=== PATIENT | male | born 1960 | race Two or more races ===

== ENCOUNTER 2025-01-20 06:31 | Emergency (ER) | payer OTHER ==
[~2025-01-20] VITALS: Ht 170.2 cm; Wt 62.6 kg
[2025-01-20] MEDS ORDERED: LIDOCAINE 2% JEL UROJET 10 ML MM ONE (06:43)
[2025-01-20 07:08] LABS: PLATELET COUNT (AUTO) 224 K/uL (150-450); RED BLOOD CELL COUNT(AUTO) 5.19 MIL/uL (4.5-6.0); RED CELL DISTRIBUTION WIDTH 15.8 % (11.5-15.0); WHITE BLOOD COUNT (AUTO) 5.2 K/uL (4.3-11.0)
[2025-01-20 07:09] LABS: APPEARANCE,URINE CLEAR (CLEAR); BLOOD, URINE 2+ Ery/uL (NEGATIVE); LEUKOCYTE ESTERASE ,URINE NEGATIVE (NEGATIVE); NITRITE, URINE NEGATIVE (NEGATIVE); UGLUCOSE NEGATIVE (NEGATIVE)
[2025-01-20 07:15] LABS: CALCIUM, SERUM 8.8 mg/dL (8.5-10.1); CREATININE 1.4 mg/dL (0.6-1.3); SODIUM SERUM 135.0 mmol/L (136-145); UREA NITROGEN, BLOOD 23.0 mg/dL (7-18)
[2025-01-20] MEDS ORDERED: TAMS-12 PO (07:18)
[2025-01-20 07:54] LABS: ADD URINE CULTURE YES; SQUAMOUS EPITHELIAL CELL,UR Few /HPF (None Seen)
[2025-01-20] MEDS: IV NS 0.9% 1,000 ML BAG IV ONE (08:15)
[2025-01-20] MEDS ORDERED: CEPH-570 PO (09:01)
[2025-01-20 09:09] VITALS: BP 135/81; TEMP 98; O2SAT 98
== END 2025-01-20 09:10 | disposition home or self-care (01) ==
LOC: ER 06:33 → EDBD 06:33 → ER 09:10
DX: R33.9 Retention of urine, unspecified (principal); I10 Essential (primary) hypertension; Z87.442 Personal history of urinary calculi; Z60.2 Problems related to living alone
CPT/HCPCS: 99284; 96360; 51702; 85025; 80048; 87086; 81001; 36415; J3490; J7030